=== PATIENT | male | born 1965 | race Caucasian/White ===

== ENCOUNTER 2017-02-02 13:46 | Emergency (ER) | payer OTHER ==
[~2017-02-02] VITALS: Ht 177.8 cm; Wt 77.8 kg
[2017-02-02 14:54] LABS: HEMATOCRIT 44.9 % (38.0-50.0); MCH 30.5 PG (29.0-34.0); MCHC 34.3 G/DL (30.0-36.0); MCV 88.9 FL (86-99); MEAN PLAT.VOLUME 9.3 uM^3 (9.0-12.4); PLATELET COUNT 302 K/uL (156-360); RBC DIS.WIDTH-CV 13.4 % (11.8-14.6); RBC DIS.WIDTH-SD 43.8 % (39-53); RED BLOOD COUNT 5.05 M/uL (4.00-5.50); WHITE BLOOD COUNT 11.9 K/uL (4.1-10.2)
[2017-02-02 15:07] LABS: CHLORIDE 104 mEq/L (99-109); POTASSIUM 3.9 mEq/L (3.7-5.4); SODIUM 141 mEq/L (136-147)
[2017-02-02 15:09] LABS: GLUCOSE 81 mg/dL (70-99)
[2017-02-02 15:10] LABS: ANION GAP 12 MEQ/L (2-14)
[2017-02-02 15:11] LABS: TOTAL BILIRUBIN 0.3 mg/dL (0.0-1.0)
[2017-02-02 15:12] LABS: ALKALINE PHOSPHATASE 70 IU/L (3-129)
[2017-02-02 15:14] LABS: GFR ESTIMATE (CALCULATED) > 59 mL/min/; UREA NITROGEN (BUN) 18 mg/dL (9-23)
[2017-02-02 16:31] LABS: ADD MIUA? YES; BILIRUBIN NEGATIVE; BLOOD SMALL; COLOR YELLOW ((YELLOW)); GLUCOSE (STRIP) NEGATIVE; KETONES NEGATIVE; LEUKOCYTES NEGATIVE; NITRITE NEGATIVE; PROTEIN (STRIP) 30; SPECIFIC GRAVITY 1.035 (1.000-1.030); UROBILINOGEN 0.2 MG/DL (0.2-1.0)
[2017-02-02 16:36] LABS: BACTERIA NONE SEEN /HPF; EPITHELIAL CELLS NONE SEEN /HPF; MUCUS TRACE /LPF; UCUL ADDED? NO; WHITE BLOOD CELLS NONE SEEN /HPF (0-5)
[2017-02-02] MEDS ORDERED: CIPRO500 MG PO (17:15)
[2017-02-02] MEDS ORDERED: FLAGYL500 MG PO (17:15)
[2017-02-02] MEDS ORDERED: PERCOCET 5/31 TABLET PO (17:15)
[2017-02-02] MEDS ORDERED: COLACE100 MG PO (18:58)
[2017-02-02 18:59] VITALS: BP 152/96
== END 2017-02-02 19:00 | disposition left against medical advice (07) ==
LOC: EME 13:46
DX: K57.20 Diverticulitis of large intestine with perforation and abscess without bleeding (principal); K59.00 Constipation, unspecified
CPT/HCPCS: 74177; 80053; 81003; 83690; 85027; 99281; 99283; J1335; J2270; J7030; J7050

== ENCOUNTER 2017-03-25 11:38 | Emergency (ER) | payer OTHER ==
[~2017-03-25] VITALS: Ht 177.8 cm; Wt 96.3 kg
[~2017-03-25 11:38] MED LIST: CIPRO500 MG PO; COLACE100 MG PO; FLAGYL500 MG PO; PERCOCET 5/31 TABLET PO
[2017-03-25 12:10] LABS: MCHC 33.9 G/DL (30.0-36.0); MCV 88.7 FL (86-99); MEAN PLAT.VOLUME 9.3 uM^3 (9.0-12.4); PLATELET COUNT 255 K/uL (156-360); RBC DIS.WIDTH-CV 13.6 % (11.8-14.6); RBC DIS.WIDTH-SD 44.2 % (39-53); RED BLOOD COUNT 4.96 M/uL (4.00-5.50); WHITE BLOOD COUNT 10.2 K/uL (4.1-10.2)
[2017-03-25 12:18] LABS: CHLORIDE 104 mEq/L (99-109); POTASSIUM 4.3 mEq/L (3.7-5.4); SODIUM 140 mEq/L (136-147)
[2017-03-25 12:20] LABS: GLUCOSE 102 mg/dL (70-99)
[2017-03-25 12:21] LABS: ANION GAP 12 MEQ/L (2-14)
[2017-03-25 12:22] LABS: TOTAL BILIRUBIN 0.4 mg/dL (0.0-1.0)
[2017-03-25 12:23] LABS: ALKALINE PHOSPHATASE 67 IU/L (3-129)
[2017-03-25 12:24] LABS: GFR ESTIMATE (CALCULATED) > 59 mL/min/
[2017-03-25 12:25] LABS: UREA NITROGEN (BUN) 14 mg/dL (9-23)
[2017-03-25 14:28] LABS: INTER. NORMALIZED RATIO 1.1; PROTHROMBIN TIME 12.2 SEC (10.2-12.9)
[2017-03-25 14:30] LABS: PTT 32.6 SEC (25-37)
[2017-03-25 14:33] LABS: TOTAL BILIRUBIN 0.4 mg/dL (0.0-1.0)
[2017-03-25 14:34] LABS: ALKALINE PHOSPHATASE 66 IU/L (3-129)
[2017-03-25 14:36] LABS: DIRECT BILIRUBIN 0.1 mg/dL (0.0-0.3)
[2017-03-25 14:37] LABS: LIPASE 15 U/L (1.0-51.0)
[2017-03-25 15:19] LABS: ADD MIUA? YES; BILIRUBIN NEGATIVE; BLOOD SMALL; COLOR STRAW ((YELLOW)); GLUCOSE (STRIP) NEGATIVE; KETONES 5; LEUKOCYTES NEGATIVE; NITRITE NEGATIVE; PROTEIN (STRIP) NEGATIVE; SPECIFIC GRAVITY 1.031 (1.000-1.030); UROBILINOGEN 0.2 MG/DL (0.2-1.0)
[2017-03-25 15:22] LABS: BACTERIA NONE SEEN /HPF; EPITHELIAL CELLS NONE SEEN /HPF; MUCUS NONE SEEN /LPF; RED BLOOD CELLS 0-5 /HPF (0-5); UCUL ADDED? NO; WHITE BLOOD CELLS 0-5 /HPF (0-5)
[2017-03-25] MEDS ORDERED: FLAGYL500 MG PO (16:55)
[2017-03-25] MEDS ORDERED: CIPRO500 MG PO (16:55)
[2017-03-25] MEDS ORDERED: COLACE100 MG PO (16:56)
[2017-03-25] MEDS ORDERED: BENTYL20 MG PO (16:56)
[2017-03-25 17:27] VITALS: BP 153/87
== END 2017-03-25 17:28 | disposition home or self-care (01) ==
LOC: EME 11:38
PROVIDERS: Emergency Medicine
DX: K52.9 Noninfective gastroenteritis and colitis, unspecified (principal); R10.32 Left lower quadrant pain; K62.5 Hemorrhage of anus and rectum; K57.30 Diverticulosis of large intestine without perforation or abscess without bleeding; K40.90 Unilateral inguinal hernia, without obstruction or gangrene, not specified as recurrent
CPT/HCPCS: 74177; 80053; 80076; 81003; 83605; 83690; 85027; 85610; 85730; 99281; 99285; J2270; J7030

== ENCOUNTER 2018-02-01 12:27 | Emergency (ER) | payer OTHER ==
[~2018-02-01] VITALS: Ht 177.8 cm; Wt 71.4 kg
[~2018-02-01 12:27] MED LIST changes: +BENTYL20 MG PO
[2018-02-01 13:11] LABS: HEMATOCRIT 40.6 % (38.0-50.0); HEMOGLOBIN 14.5 G/DL (12.5-16.6); MCH 31.9 PG (29.0-34.0); MCHC 35.7 G/DL (30.0-36.0); MCV 89.4 FL (86-99); PLATELET COUNT 255 K/uL (156-360); RBC DIS.WIDTH-CV 13.5 % (11.8-14.6); RBC DIS.WIDTH-SD 44.5 % (39-53); RED BLOOD COUNT 4.54 M/uL (4.00-5.50); WHITE BLOOD COUNT 7.7 K/uL (4.1-10.2)
[2018-02-01 13:17] LABS: CHLORIDE 107 mEq/L (99-109); POTASSIUM 3.8 mEq/L (3.7-5.4); SODIUM 141 mEq/L (136-147)
[2018-02-01 13:19] LABS: GLUCOSE 94 mg/dL (70-99)
[2018-02-01 13:23] LABS: CREATININE 0.9 mg/dL (0.6-1.3); GFR ESTIMATE (CALCULATED) > 59 mL/min/ (58.99-99999)
[2018-02-01 13:24] LABS: UREA NITROGEN (BUN) 18 mg/dL (9-23)
[2018-02-01] MEDS ORDERED: VENTOLIN HFA18 GM IH (14:33)
[2018-02-01] MEDS ORDERED: MUCUS-ER MAX1200 MG PO (14:33)
[2018-02-01 15:02] VITALS: BP 148/87
== END 2018-02-01 15:04 | disposition home or self-care (01) ==
LOC: EME 12:27
DX: R09.1 Pleurisy (principal); R05 Cough; Z87.891 Personal history of nicotine dependence
CPT/HCPCS: 71046; 80048; 85027; 94640; 99281; 99284